=== PATIENT | female | born 1970 | race Caucasian/White ===

== ENCOUNTER 2021-07-14 12:52 | Outpatient (REF) | payer OTHER, SELFPAY ==
[2021-07-14 15:09] LABS: COVID-19 Test Negative (Negative); IDNOW Serial# 16C4AD1C
== END 2021-07-14 12:53 | disposition home or self-care (01) ==
LOC: HO.LAB 12:52
PROVIDERS: Visit Provider Internal Medicine
DX: Z20.822 Contact with and (suspected) exposure to COVID-19 (principal)
CPT/HCPCS: 36415; 87635; C9803

== ENCOUNTER 2023-03-01 10:16 | Outpatient (REF) | payer OTHER, SELFPAY | END 2023-03-01 10:17 | disposition home or self-care (01) | LOC: HO.HOSX 10:16 | PROVIDERS: Visit Provider Orthopaedic Surgery | DX: Z13.89 Encounter for screening for other disorder (principal) ==

== ENCOUNTER 2023-03-07 05:11 | Outpatient (REF) | payer OTHER, SELFPAY ==
--- NOTE | ~2023-03-07 | XR_ITS ---
EXAMINATION: XR KNEE, LEFT CLINICAL INFORMATION: Pain. COMPARISON: Radiographs dated 01/30/2018. TECHNIQUE: AP, lateral and sunrise views of the left knee. FINDINGS: Prosthetic components of the total knee arthroplasty are appropriately aligned without periprosthetic fracture or abnormal lucency. No component migration. There is a small joint effusion. XR/XR knee LT 3V IMPRESSION: 1. Appropriate alignment of the left total knee arthroplasty without evidence of complications. 2. There is a small left knee joint effusion.
== END 2023-03-07 05:12 | disposition home or self-care (01) ==
LOC: HO.HOSX 05:11
PROVIDERS: Visit Provider Orthopaedic Surgery
DX: M25.562 Pain in left knee (principal); Z79.899 Other long term (current) drug therapy
CPT/HCPCS: 73562

== ENCOUNTER 2023-03-07 08:06 | Outpatient (AMB) | payer OTHER, SELFPAY ==
--- NOTE | 2023-03-07 08:28 | A.OFFVIS_ITS ---
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 Suarez for an evaluation of left knee. Xrays obtained in office. Patient reports left TKA was done around 12/2021. Currently mild pain and discomfort. She denies any fevers or chills. She continues with her home stretching program. 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 Physical Exam Vital Signs: BMI result Body Mass Index 26.1 Const Other: Well-nourished well-developed very friendly female awake alert and oriented x3 in no acute distress Extrem Other: Bilateral lower extremity examination shows good capillary refill, no skin lesions noted, normal sensation light touch Left knee examination shows that the surgical incision is well healed, no erythema, range of motion from -5 degrees to 110 degrees, her patella tracks well, no instability Results Reviewed Results Reviewed: X-rays of the patient's left knee show a total knee arthroplasty in good position with no signs of loosening, no acute bony abnormalities Assessment & Plan Assessment & Plan (1) Left knee pain: Code(s): M25.562 - Pain in left knee Plan Ms. Renee continues to do fairly well after undergoing left total knee replacement surgery in December of 2021. She does know to take antibiotics before any dental work. She will continue with her stretching program. She will contact me prior to her follow-up appointment in 3 months should any questions or concerns arise. Feel free to call me at any time should questions regarding her orthopedic management arise. Orders: Orders XR knee LT 3V Today M25.562 - Pain in left knee Medications: New tramadol 50 mg PO Q8H PRN 40 tabs 0RF pain Coding Level of Care Code Global (51293) Diagnoses Left knee pain M25.562 Comment HNE not accepted yet
[2023-03-07 08:30] VITALS: BMI 26.1
== END 2023-03-07 08:54 | disposition home or self-care (01) ==
PROVIDERS: PCP Internal Medicine; Visit Provider Orthopaedic Surgery
DX: M25.562 Pain in left knee (principal)
CPT/HCPCS: 99213

== ENCOUNTER 2023-07-10 08:24 | Outpatient (AMB) | payer OTHER, SELFPAY ==
--- NOTE | 2023-07-10 08:27 | MHC.OFFVIS ---
Intake Vital Signs 07/10/23 08:28 07/10/23 08:29 Height 5 ft 4 in 54 ft Weight 154 lb 154 lb BMI 26.4 0.3 Intake Visit Reasons: Ov-Left Knee pain Intake Note: Yun is a 53 year old female who presents today for a follow up of her left knee pain. left total knee replacement surgery in December of 2021. Patient's continues to ride her stationary bike for exercise. She denies any fevers or chills. She does take tramadol as needed which gives her good relief. 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 Renee continues to do well after undergoing left total knee replacement surgery. She will continue with her home exercise program to prevent stiffness. She does know to take antibiotics before any dental work. She will contact me prior to her annual follow-up appointment should any questions or concerns arise. Feel free to call me at any time should questions regarding her orthopedic management arise. I spent 20 minutes in reviewing the patient's records and imaging studies, seeing the patient and documenting in the medical record. Medications: Refilled tramadol 50 mg PO Q8H PRN 40 tabs 0RF pain Coding Level of Care Code Est Pt Level 2 (78007) Diagnoses Left knee pain M25.562
[2023-07-10 08:28] VITALS: BMI 26.4
== END 2023-07-10 08:53 | disposition home or self-care (01) ==
PROVIDERS: PCP Internal Medicine; Visit Provider Orthopaedic Surgery
DX: M25.562 Pain in left knee (principal); Z96.652 Presence of left artificial knee joint
CPT/HCPCS: 99213

== ENCOUNTER → 2023-07-10 08:24 | Outpatient (BNVA) | payer OTHER, SELFPAY | PROVIDERS: PCP Internal Medicine; Visit Provider Orthopaedic Surgery ==

== ENCOUNTER 2023-08-23 09:33 | Outpatient (AMB) | payer OTHER, SELFPAY ==
[2023-08-23 09:34] VITALS: BMI 26.4
--- NOTE | 2023-08-23 09:34 | MHC.OFFVIS ---
Intake Vital Signs 08/23/23 09:34 Height 5 ft 4 in Weight 154 lb BMI 26.4 Intake Visit Reasons: OV-left knee pain follow up Intake Note: Yun is a 53 year old female who present for a follow up for Left knee pain. Patient reports that she is still in pain and the tramadol is not working. She says her pain is worse when she is walking and using the stairs. She denies any fevers or chills. She did undergo left total knee replacement surgery in December of 2021. She continues to stretch her knee as much as possible. She is due to go to [place] on vacation over the next few weeks. 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 Physical Exam Vital Signs: BMI result Body Mass Index 26.4 Const Other: Well-nourished well-developed very friendly female awake alert and oriented x3 in no acute distress Extrem Other: Bilateral lower extremity examination shows good capillary refill, no skin lesions noted, normal sensation light touch Left knee examination shows that the surgical incision is well healed, no erythema, range of motion from -3 degrees to 100 degrees, her patella tracks well Results Reviewed Results Reviewed: X-rays of the patient's left knee taken previously show a total knee arthroplasty in good position with no signs of loosening, no acute bony abnormalities Assessment & Plan Assessment & Plan (1) Painful total knee replacement, left: Code(s): T84.84XA - Pain due to internal orthopedic prosthetic devices, implants and grafts, initial encounter; Z96.652 - Presence of left artificial knee joint Plan Ms. Renee presents with continued discomfort in her left knee after undergoing left total knee replacement surgery in December of 2021. The patient's discomfort is most likely due to retained scar tissue and stiffness. The patient wishes to avoid further surgery if possible. I will arrange for the patient to have a evaluation by Dr. Dockery from the pain management clinic here at [facility] to see if she is a candidate for some type of nerve block procedure which might give her some relief. The patient will follow-up as instructed. She does know to take antibiotics before any dental work. I did give her a prescription for Percocet to help with her pain while she is on vacation at [place]. She will contact me prior to her follow-up appointment in 6 months should any questions or concerns arise. Feel free to call me at any time should questions regarding her orthopedic management arise. I spent 22 minutes in reviewing the patient's records and imaging studies, seeing the patient and documenting in the medical record. Orders: Referrals Pain Management Referral T84.84XA - Pain due to internal orthopedic prosthetic devices, implants and grafts, initial encounter, Z96.652 - Presence of left artificial knee joint Medications: New oxycodone-acetaminophen 5-325 mg (Percocet) Partial Fill upon patient request. The patient is instructed to take the Percocet in place of the tramadol. She was told not to take both at the same time. 1 tab PO Q12H PRN 20 tabs 0RF pain Coding Level of Care Code Est Pt Level 2 (90997) Diagnoses Painful total knee replacement, left T84.84XA; Z96.652
== END 2023-08-23 09:57 | disposition home or self-care (01) ==
PROVIDERS: PCP Internal Medicine; Visit Provider Orthopaedic Surgery
DX: M25.562 Pain in left knee (principal); T84.84XA Pain due to internal orthopedic prosthetic devices, implants and grafts, initial encounter; Z96.652 Presence of left artificial knee joint
CPT/HCPCS: 99213

== ENCOUNTER → 2023-08-23 09:33 | Outpatient (BNVA) | payer OTHER, SELFPAY | PROVIDERS: PCP Internal Medicine; Visit Provider Orthopaedic Surgery ==

== ENCOUNTER 2024-01-02 08:08 | Outpatient (AMB) | payer OTHER, SELFPAY ==
--- NOTE | 2024-01-02 08:11 | MHC.OFFVIS ---
Vital Signs 01/02/24 08:13 Height 5 ft 4 in Weight 149 lb BMI 25.6 BP 144/102 H Blood Pressure Location Lt brachial Position Sitting Respiration 14 Pulse 93 Pulse Source Pulse Oximeter Pulse Oximetry (%) 97 Oxygen Delivery Method Room Air Intake Visit Reasons: Pain D/T Internal Ortho Prosthetic Devices Intake Note: BP taken manually, Pt not on any BP meds. Pt states her had a recent DC, they are moving and had a in the family, so she is stressed. She states she is able to monitor her BP at home. I encouraged her to do this, and notify her PCP if BP remains elevated Allergies No Known Allergies Allergy (Verified 01/02/24 08:16) Medication List - Last Reconciled 01/02/24 by Latricia Melgar LPN clonazepam 1 mg PO BEDTIME PRN oxycodone-acetaminophen 5-325 mg (Percocet) 1 tab PO Q12H PRN tramadol 50 mg PO Q8H PRN HPI HPI Pain D/T Internal Ortho Prosthetic Devices: Details: 53-year-old female who presents to the office for evaluation of pain d/t internal ortho prosthetic devices. She states she had a left total knee replacement surgery two years ago. She now has pain, aching, nagging, stabbing pain, heaviness, and a and a feeling? that gets worse by the end of the day around her left knee. Knee pain is described as having an intensity of 8 to 9 out of 10 at the end of the day; it starts at 1 to 2 out of 10 at the beginning of the day. She continues to work full-time. She has difficulty sleeping because of this pain, but she is able to do her daily activities and care for herself. She has been managing her pain with Tramadol, which is not helpful anymore. She was engaged in outpatient physical therapy for a while but had to stop it to be able to take care of family members. She feels she would like to continue with physical therapy as it is providing some benefit. She denies any fever or chills. She continues to stretch her knees as much as possible. She thinks the pain and discomfort are most likely due to retained scar tissue and stiffness. She wishes to avoid any further surgery if possible. She is interested in trying a nerve block procedure, which might give her some relief. 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 Alert and oriented. Mood and affect appropriate. Follows and participates in conversation appropriately. Respiratory effort is unlabored. Able to transition from sit to stand unassisted. There is a well-healed midline scar overlying the left knee. There is tenderness to palpation in the medial and lateral aspects of the patella and is worse with weight bearing. Results Reviewed Results Reviewed: 03/02/23: XR KNEE, LEFT FINDINGS: Prosthetic components of the total knee arthroplasty are appropriately aligned without periprosthetic fracture or abnormal lucency. No component migration. There is a small joint effusion. IMPRESSION: 1. Appropriate alignment of the left total knee arthroplasty without evidence of complications. 2. There is a small left knee joint effusion. Assessment & Plan Assessment & Plan (1) Left knee pain: Code(s): M25.562 - Pain in left knee Category: Medical (2) Painful total knee replacement, left: Code(s): T84.84XA - Pain due to internal orthopedic prosthetic devices, implants and grafts, initial encounter; Z96.652 - Presence of left artificial knee joint Category: Medical Plan She will return to to physical therapy for the summer as well as swimming and aquatic exercises. If these are not helpful for pain or worsen her symptoms, she will return to us in the fall for a trial of temporary nerve stimulation therapy of the left saphenous nerve for post arthroplasty intractable knee pain. Scribed for Dr. Dockery by Rosa Maria Haile, medical administrative assistant, on 01/02/2024. I, Dr. Dockery, have personally reviewed and agree with the information entered by the scribe. Orders: Orders PT Evaluation and Treatment 01/02/24 M25.562 - Pain in left knee, T84.84XA - Pain due to internal orthopedic prosthetic devices, implants and grafts, initial encounter, Z96.652 - Presence of left artificial knee joint Coding Level of Care Code Est Pt Level 3 (02387) Diagnoses Left knee pain M25.562 Painful total knee replacement, left T84.84XA; Z96.652
[2024-01-02 08:13] VITALS: BP 144/102; PULSE 93; RESP 14; O2SAT 97; BMI 25.6
== END 2024-01-02 08:55 | disposition home or self-care (01) ==
PROVIDERS: PCP Internal Medicine; Visit Provider Internal Medicine
DX: M25.562 Pain in left knee (principal); T84.84XA Pain due to internal orthopedic prosthetic devices, implants and grafts, initial encounter; Z96.652 Presence of left artificial knee joint
CPT/HCPCS: 99213

== ENCOUNTER → 2024-01-02 08:08 | Outpatient (BNVA) | payer OTHER, SELFPAY | PROVIDERS: PCP Internal Medicine; Visit Provider Internal Medicine ==

== ENCOUNTER 2024-02-19 09:22 | Outpatient (AMB) | payer OTHER, SELFPAY ==
--- NOTE | 2024-02-19 09:59 | A.OFFVIS_ITS ---
Intake Visit Reasons: OV-left knee pain follow up Intake Note: Yun is a 53 year old female who presents to the office today for a left knee pain follow up. Patient saw pain management on 01/02/24, states having a little improvement since that visit. She continues to do at home exercises. She has also done formal physical therapy as well as aquatic therapy. She denies any fevers or chills. She does take tramadol as needed for discomfort. 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 Renee continues to do fairly well after undergoing left total knee repla cement surgery. She does have residual discomfort most likely due to scar tissue formation. At this point the patient's symptoms are improving with aquatic therapy and physical therapy exercises. She does know to take antibiotics before any dental work. She will contact me prior to her follow-up appointment in 3 months should any questions or concerns arise. Feel free to call me at any time should questions regarding her orthopedic management arise. I spent 21 minutes in reviewing the patient's records and imaging studies, seeing the patient and documenting in the medical record. Medications: Refilled tramadol 50 mg PO Q8H PRN 40 tabs 0RF pain Coding Level of Care Code Est Pt Level 3 (43552) Diagnoses Left knee pain M25.562
== END 2024-02-19 10:27 | disposition home or self-care (01) ==
PROVIDERS: PCP Internal Medicine; Visit Provider Orthopaedic Surgery
DX: M25.562 Pain in left knee (principal)
CPT/HCPCS: 99213

== ENCOUNTER → 2024-02-19 09:22 | Outpatient (BNVA) | payer OTHER, SELFPAY | PROVIDERS: PCP Internal Medicine; Visit Provider Orthopaedic Surgery ==

== ENCOUNTER 2025-06-29 10:53 | Outpatient (AMB) | payer OTHER, SELFPAY ==
--- NOTE | 2025-06-29 11:23 | A.OFFVIS_ITS ---
Intake Visit Reasons: follow up Allergies No Known Allergies Allergy (Verified 06/29/25 11:28) Medication List - Last Reconciled 06/29/25 by Renay Mccoy CNP amitriptyline 50 mg PO BEDTIME clonazepam (Klonopin) 1 mg PO BEDTIME 30 days oxycodone-acetaminophen 5-325 mg (Percocet) 1 tab PO Q6H PRN 30 days tramadol 50 mg PO Q12H PRN HPI Comments Details: She slipped and fell on ice on 06/16/2025 while at work, and hurt left knee, has L TKR. Had XRs, and has appointment with orthopedics on 07/08/2025. L knee painful and swollen. She was offered pain medication, but declined as she is getting oxycodone-acetaminophen from this office. Headaches have been okay, about the same. 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 Sleep had been okay, but not so good the last few weeks related to knee pain. Headaches were happening few times a week. She was working in [employer] for over 30 years. Her was doing okay after having his third heart attack at the end of 06/2024. Working with therapist. Her grandson passed at 13 months in 10/2022 from aspiration. He had undergone open heart surgery at [facility]. He had been in the hospital since . Her had PA and needed two stents in 12/2023, also had PA in 03/2021 and treated with tPA. She was diagnosed as Lyme disease on 02/27/2021 and treated with doxycycline for 3 weeks. Symptoms were a swollen ankle and pain in back of neck and joints hurting. Loss of appetite and fatigue. She has history of IBS and resection of carcinoid tumor in 2000, acts up off and on. 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 Review of Systems Const Denies chills, Denies daytime sleepiness, Reports difficulty sleeping, Denies fatigue, Denies fever(s), Denies frequent falls, Reports headache(s), Denies increased appetite, Denies poor appetite, Denies snoring, Denies weakness, Denies weight gain and Denies weight loss Eyes Denies loss of vision ENT Denies vertigo, Denies dizziness, Reports headache(s) and Denies neck pain Card Denies chest pain at rest, Denies chest pain with activity, Denies syncope, Denies leg edema, Denies palpitations, Denies dyspnea and Denies dyspnea on exertion Resp Denies cough, Denies dyspnea, Denies dyspnea on exertion and Denies snoring GI Denies abdominal pain, Denies constipation, Denies heartburn, Denies diarrhea and Denies nausea Denies urinary frequency, Denies urinary incontinence and Denies urinary urgency Musc Denies abnormal gait, Denies back pain, Denies myalgias, Denies arthralgias, Denies neck pain, Denies numbness and Denies tingling Neuro Denies abnormal gait, Denies vertigo, Denies dizziness, Denies syncope, Denies frequent falls, Reports headache(s), Denies lack of coordination, Denies loss of vision, Denies memory loss, Denies numbness, Denies Other visual disturbances, Denies restless legs, Denies seizure-like activity, Denies tingling, Denies paresthesias, Denies tremor(s) and Denies weakness Psych Reports anxiety, Denies depression, Denies auditory hallucinations, Denies memory loss and Denies visual hallucinations Endo Denies fatigue and Denies palpitations Physical Exam Const Other: General Appearance:? normal, in no acute distress. Heart:? S1, S2 normal, no murmurs. Lungs:? clear anteriorly and posteriorly. Musculoskeletal:? normal. Extremities:? no edema. Psych:? alert, oriented, cognitive function intact, cooperative with exam. Neuro Other: Abnormal Neurological Findings:?none.? Mental Status: alert and oriented X 3. Normal attention, orientation, memory, and affect. Cranial Nerves: Pupils are equal, round, and reactive to light. External ocular muscles are intact. Visual negron are full, no ptosis. Face is symmetrical, no facial weakness or droop. Facial sensations are normal. Tongue protrudes in midline. Palate elevates symmetrically. Shoulder shrugging is normal Motor Examination: Normal muscle tone, bulk and strength. No atrophy or fasciculations. No drift of the extended upper extremities. DTR 2+. Plantars are flexor. Sensory Exam: Normal light touch, temperature, pinprick, vibration, and joint- position sensations. Rhomberg sign is absent. Coordination: No ataxia. No titubation. Gait Exam: Within normal limits. Cerebellar Signs: [id number] is okay. Extrapyramidal System: No tremor, rigidity with normal facial expressions. No bradykinesia. No bradyphrenia. Normal arm swing and posture. No propulsion or retropulsion. Speech: Normal. Assessment & Plan Assessment & Plan (1) Migraine: Code(s): G43.909 - Migraine, unspecified, not intractable, without status migrainosus Category: Medical Qualifiers: Intractability: not intractable Migraine type: unspecified Status migrainosus presence: without status migrainosus Qualified Code(s): G43.909 - Migraine, unspecified, not intractable, without status migrainosus Plan: Continue amitriptyline 50mg 1 tablet at bedtime. Continue oxycodone-acetaminophen 5-325mg 1 tablet as needed q6h for migraine #30 for 30 days, temporary increase to #40 for 30 days for L knee pain - has appoint ment with orthopedics scheduled later this month. Follow up in 6 months or sooner as needed. (2) Anxiety: Code(s): F41.9 - Anxiety disorder, unspecified Category: Medical Plan: Continue clonazepam 1mg 1 tablet at bedtime #30 for 30 days. Medications: New amitriptyline 50 mg PO BEDTIME 90 tabs 1RF 90 days Changed From oxycodone-acetaminophen 5-325 mg (Percocet) Partial Fill upon patient request. 1 tab PO Q6H 30 days PRN 30 tabs 0RF pain To oxycodone-acetaminophen 5-325 mg (Percocet) Temporary increase 1 tab PO Q6H PRN 30 tabs 0RF pain 40 days Discontinued tramadol Discontinued Reason: Patient no longer taking 50 mg PO Q12H PRN 60 tabs 0RF pain Coding Level of Care Code Est Pt Level 4 (09765) Diagnoses Migraine without status migrainosus, not intractable, unspecified migraine type G43.909 Intractability: not intractable Migraine type: unspecified Status migrainosus presence: without status migrainosus Anxiety F41.9
== END 2025-06-29 11:39 | disposition home or self-care (01) ==
LOC: HO.HSM 10:53
PROVIDERS: PCP Internal Medicine; Visit Provider Registered Nurse
DX: G43.909 Migraine, unspecified, not intractable, without status migrainosus (principal); F41.9 Anxiety disorder, unspecified
CPT/HCPCS: 99214

== ENCOUNTER 2025-07-08 08:41 | Outpatient (AMB) | payer OTHER, SELFPAY ==
--- OUTSIDE RECORDS SUMMARY | 2022-12-16 09:59 | XMS_ITS | Encounter Summary ---
Author Organization [facility] Address [address] [place] [address] [place], [place] [id number] Phone Care Team Providers Care Shipping Receiving Clerk Name Role Phone Phani Rascon Primary Care Provide r Encounter Details Date Type Department Care Team (Late st Contact Info) Description 12/16/2022 10:59 AM EDT Hospital Encounter [facility] [address] [place] [id number] Cecily Sheppard CNP [address] [place] [phone] [email or web address] Social History Tobacco Use Types Packs/Day Years Used Date Smoking Tobacco: Never Smokeless Tobacco: Never Education Answer Date Recorded Are you interested in more education? Not on jose e 11/10/2022 Are you concerned about learning? Not on file 11/10/2022 No 11/10/2022 No 11/10/2022 Digital Access Answer Date Recorded No 12/09/2022 No 12/09/2022 No 12/09/2022 Reliable internet access at home? Not on file 12/09/2022 Device with a working camera? Not on file Comments Unknown Sex and Gender Information Value Date Recorded Sex Assigned at Not on file Legal Sex Female 9:37 PM EDT Gender Identity Not on file Sexual Orientation Not on file documented as of this encounter Plan of Treatment Not on file documented as of this encounter Procedures Procedure Name Priority Date/Time Associated Diagnosis Comments XR CHEST PA AND LATERAL 2 VIEWS Urgent/patient waiting 12/16/2022 11:04 AM EDT Cough documented in this encounter Results * XR CHEST PA AND LATERAL 2 VIEWS (12/16/2022 11:04 AM EDT) Anatomical Region Laterality Modality Chest Computed Radiogr aphy 12/16/2022 11:1 6 AM EDT Impressions 12/16/2022 11:16 AM EDT Normal chest. Narrative 12/16/2022 11:16 AM EDT XR CHEST PA AND LATERAL 2 VIEWS COMPARISON: None. FINDINGS: Devices/Tubes/Lines: None. Lungs: Normal. The lungs are clear. No focal consolidation or pulmonary edema. Pleura: Normal. No pleural effusion or pneumothorax. Heart/Mediastinum: Normal heart and mediastinum. Bones/Soft Tissues: Normal. No significant skeletal abnormality. Procedure Note Carley Herzog MD - 12/16/2022 XR CHEST PA AND LATERAL 2 VIEWS COMPARISON: None. FINDINGS: Devices/Tubes/Lines: None. Lungs: Normal. The lungs are clear. No focal consolidation or pulmonaryedema. Pleura: Normal. No pleural effusion or pneumothorax. Heart/Mediastinum: Normal heart and mediastinum. Bones/Soft Tissues: Normal. No significant skeletal abnormality. IMPRESSION: Normal chest. us Cecily Sheppard AUTOMATIC BUFFER IMG XR CHEST Final Resul t documented in this encounter Visit Diagnoses Not on filedocumented in this encounter Care Teams Shipping Receiving Clerk Relationship Specialty Start Date End Date Phani Rascon PA [address] [facility] [address] [place] [address] PCP - General Physician Yard Crane Operator 12/16/22 documented as of this encounter Additional Source Comments The information contained in this document represents components of the legal health record. It is not the complete legal health record.[facility]
--- OUTSIDE RECORDS SUMMARY | 2025-07-08 08:43 | XMS_ITS | Clinical Summary ---
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 Active morphine IR (MSIR) 15 mg Tablet Take 1 tablet by mouth every 6 hours as needed for Pain. 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 Overview (02/27/2021): 4 cm; partial colectomy 2000; octreatide for few years; CN Q6M; now CN YEARLY Chronic diarrhea 02/27/2021 Elevated LFTs 02/27/2021 Hyperlipidemia 02/27/2021 GERD (gastroesophageal reflux disease) 0 IBS (irritable bowel syndrome) 09/01/2019 Family history of breast cancer 03/04/2019 Fatty liver 01/02/2019 Social History Tobacco Use Types Packs/Day Years Used Date Smoking Tobacco: Never Assessed Comments Unknown Sex and Gender Information Value Date Recorded Sex Assigned at Not on file Legal Sex Female 7:48 AM EDT Gender Identity Not on file Sexual Orientation Not on file Last Filed Vital Signs Vital Sign Reading Time Taken Comments Blood Pressure 155/94 02/27/2021 3:42 PM EDT Pulse 104 02/27/2021 7:59 AM EDT Temperature 36.6 C (97.8 F) 02/27/2021 3:42 PM EDT Respiratory Rate 16 02/27/2021 3:42 PM EDT Oxygen Saturation 94% 02/27/2021 3:42 PM EDT Inhaled Oxygen Concentration - - Weight 73 kg (161 lb) 02/27/2021 7:59 AM EDT Height 162.6 cm (5' 4 ) 02/27/2021 7:59 AM EDT Body Mass Index 27.64 02/27/2021 7:59 AM EDT Plan of Treatment Health Maintenance Due Date Last Done Comments CT Colonography 1968 Colonoscopy 1968 Colorectal Cancer Screening 1968 FIT DNA 1968 FIT 1968 Sigmoidoscopy (10 year) with FIT yearly 1968 Sigmoidoscopy 1968 HIV screen 1986 Hepatitis C Screening 1986 Hepatitis B vaccine (0-59 yrs) and Risk (1) 1987 Tetanus/Diphtheria/Pertussis Vaccines (1 - Tdap) 03/09 HPV test 1998 PAP Smear 1998 Breast Cancer Share Decision Needed 2008 Breast Cancer screening 2008 Pneumoccocal Vaccine: 50+ (1 of 1 - PCV) 2018 Zoster vaccine (1 of 2) 2018 Advance Directive 2023 Covid-19 Vaccine (2 - 2024- season) 2025 Influenza (Flu) vaccine (1 o f 1 - Influenza standard series) 03/16/2025 Diabetes Screening (HgbA1C or Glucose) Discontinued Procedures Procedure Name Priority Date/Time Associated Diagnosis Comments BASIC METABOLIC PANEL STAT 02/27/2021 8:10 AM EDT from Last 3 Months or Most Recently Relevant to Health Maintenance Results * (ABNORMAL) Basic Metabolic Panel (non-fasting) (02/27/2021 8:10 AM EDT) Glucose 103 65 - 199 mg/dL [facility] Comment:Diabetes: >=200 mg/d L plus symptoms Blood Urea Nitrogen 19(H) 8 - 18 mg/dL [facility] Creatinine 0.69(L) 0.70 - 1.20 mg/dL [facility] Sodium 139 135 - 145 mmol/L [facility] Potassium 3.7 3.5 - 5.0 mmol/L [facility] Comment: Please note: Patients with WBC >100,000 may have falsely elevated Potassium levels. For accurate Potassium quantification in these patients send serum separator tube (gold top) for subsequent determinations. Contact the Clinical Chemistry Laboratory if there are any questions. Chloride 101 98 - 107 mmol/L [facility] Carbon Dioxide 25 22 - 31 mmol/L [facility] Anion Gap 13 5 - 15 mmol/L [facility] Calcium 9.6 8.5 - 10.5 mg/dL [facility] Est Glomerular Filtration Rate 100 >=60 mL/min/1. 73 m [facility] Comment: This patient s estimated glomerular filtration rate (eGFR) is between 100 mL/min/1.73 m2 (patients with less muscle mass per kg body weight) and 116 mL/min/1.73 m2 (patients with more muscle mass per kg body weight) as determined by the CKD-EPI equation. Assessment of eGFR is not appropriate when creatinine concentrations are rapidly changing. For clinical decisions where creatinine clearance will affect therapy, a 24-hour urine creatinine clearance may be advised. Assignment of CKD stage 1 - 5 for patients with an eGFR near the transition point between stages may be based on clinical assessment of muscle mass and symptoms in addition to eGFR. Blood 02/27/2021 8:10 AM EDT 02/27/2021 8:19 AM EDT Narrative Resulting Agency Comment Spec In Lab us Margarito Whitney DO CHEMISTRY ORDERABLES Final Resu lt [facility] [address] [place] [address] from Last 3 Months or Most Recently Relevant to Health Maintenance Insurance [id number] (Home) [address] [place] [id number] [place] [address] Care Teams Saddle And Side Wire Stitcher Relationship Specialty Start Date End Date Kevin Laura MD [address] [place] [address] [address] [place] [address] PCP - General Internal Medicine 02/27/21
--- OUTSIDE RECORDS SUMMARY | 2025-07-08 08:43 | XMS_ITS | Clinical Summary ---
Author Organization [facility] Address [address] [place] [address] Care Team Providers Care Correctional Officer Chief Name Role Phone Kevin Laura MD Primary Care Provider [phone] Allergies No known active allergies Medications pantoprazole (PROTONIX) 40 mg EC tablet Take 1 Tablet by mouth daily. 07/25/2022 Active acetaminophen (TYLENOL) 500 mg tablet Take 1 Tablet by mouth every 6 hours as needed for Pain or Fever. 07/25/2022 Active apixaban (Eliquis) 5 mg tablet Take 1 Tablet by mouth 2 times daily. 01/17/2022 Active clonazePAM (KlonoPIN) 1 mg tablet TK 1 T PO QHS 09/16/2019 Active CLONAZEPAM ORAL Take by mouth. Active APPLE CIDER VINEGAR ORAL Take by mouth. Active psyllium seed, with sugar, (FIBER ORAL) Take by mouth. Active mv-min/iron/folic /calcium/vitK (WOMEN'S MULTIVITAMIN ORAL) Take by mouth. Active cyanocobalamin, vitamin B-12, (VITAMIN B-12 ORAL) Take by mouth. 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 Grove GERD (gastroesophageal reflux disease) 0 IBS (irritable bowel syndrome) 09/01/2019 Fatty liver 01/02/2019 Immunizations Immunization Administration Dates Next Due Hepatitis B (Sgkcwse-U-Obvew , Recombivax HB-Adult) 19yo and older 07/30/2019,02/27/2019,01/23/2019 Influenza Quadravalent, MDCK , 0.5ml, preservative free (Flucelvax) 6mo and older 03/26/2019 Influenza trivalent, 0.5mL, preservative free (Fluarix; FluLaval; Fluzone) ages 6mo and older (Afluria) 3 years and older 05/09/2020 [employer] [place] SARS-CoV-2 COVID -19, vector-nr, rS-Ad26, preservative free 09/29/2020 Tdap Tetanus diptheria acell ular pertussis (Boostrix; Adacel) 7yo and older 03/26/2019 Surgical History Surgery Date Site/Laterality Comments OTHER SURGICAL HISTORY 2000 PROCEDURE: FL COLECTOMY PARTIAL W/ANASTOMOSIS; COMMENT: ileocolectomy 9including ileocecal valve,1 foot removed KNEE ARTHROSCOPY PROCEDURE: FL ARTHROSCOPY AID [place] SPINE&/FX KNEE W/O FIXJ; COMMENT: x3 (2011, 1991,1985); [facility] HYSTERECTOMY 1999 PROCEDURE: HISTORICAL HYSTERECTOMY; COMMENT: BARBARA w/ BSO for Endometriosis SINUS SURGERY 2009 PROCEDURE: FL UNLISTED PROCEDURE ACCESSORY SINUSES; COMMENT: benign mass removed CHOLECYSTECTOMY 2015 PROCEDURE: HISTORICAL CHOLECYSTECTOMY UPPER GASTROINTESTINAL ENDOSCOPY 01/10/2011 PROCEDURE: FL UPPER GI ENDOSCOPY PERFORMED; COMMENT: erosive esophagitis, earlt schatzki's ring, superficial gastritis UPPER GASTROINTESTINAL ENDOSCOPY 02/29/2012 PROCEDURE: FL UPPER GI ENDOSCOPY PERFORMED; COMMENT: distal esophagitis, sml hiatal hernia, superficial gastritis COLONOSCOPY 02/29/2012 PROCEDURE: HISTORICAL COLONOSCOPY; COMMENT: Normal COLONOSCOPY 02/23/2015 PROCEDURE: HISTORICAL COLONOSCOPY; COMMENT: Normal UPPER GASTROINTESTINAL ENDOSCOPY 02/23/2015 PROCEDURE: FL UPPER GI ENDOSCOPY PERFORMED; COMMENT: distal esophagitis, hiatal hernia, superficial gastritis COLONOSCOPY 05/20/2010 PROCEDURE: HISTORICAL COLONOSCOPY; COMMENT: Negative - no report COLONOSCOPY 01/14/2019 PROCEDURE: HISTORICAL COLONOSCOPY; COMMENT: Normal, Repeat 5 yrs for screening purposes BREAST LUMPECTOMY 09/25/2019 Left PROCEDURE: HISTORICAL BREAST LUMPECTOMY; COMMENT: excision left breast mass BREAST BIOPSY 10/29/2019 Left PROCEDURE: BX BREAST; PERC NEEDLE CORE W/IMAG GUID; COMMENT: hematoma drained HYSTERECTOMY PROCEDURE:HYSTERECTOMY KNEE SURGERY Left PROCEDURE:KNEE SURGERY;COMMENT:x 3 l knee BREAST SURGERY 09/2019 PROCEDURE:BREAST SURGERY;COMMENT:benign COLON SURGERY 2000 PROCEDURE:COLON SURGERY;COMMENT:partial Colectomy for CA CHOLECYSTECTOMY 2015 PROCEDURE:CHOLECYSTECTOMY COLONOSCOPY PROCEDURE:COLONOSCOPY UPPER GASTROINTESTINAL ENDOSCOPY PROCEDURE:UPPER GASTROINTESTINAL ENDOSCOPY TOTAL KNEE ARTHROPLASTY 12/15/2021 Left PROCEDURE:TOTAL KNEE ARTHROPLASTY;COMMENT:Procedur e: REPLACEMENT TOTAL KNEE; Surgeon: Keaton Suarez MD; Location: [facility] Service: Orthopedics; Laterality: Left; JOINT REPLACEMENT PROCEDURE:JOINT REPLACEMENT Medical History Medical History Date Comments Carcinoid tumor of colon ([facility] V28) DX:Carcinoid tumor of colon; COMMENT: 4 cm; partial colectomy 2000; octreatide for few years; CN Q6M; now CN YEARLY Chronic diarrhea DX:Chronic diar apryl Arthritis of left knee DX:Arthri tis of left knee Endometriosis DX:Endometriosis Elevated LFTs DX:Elevated LFTs History of malignant neoplas m of large intestine 2000 DX:History of malignant neop lasm of large intestine GERD (gastroesophageal reflux disease) 0 DX:GERD (gastroesophageal reflux disease) Hyperlipidemia DX:Hyperlipidemi a IBS (irritable bowel syndrome) 09/01/2019 D X:IBS (irritable bowel syndrome) History of COVID-19 07/16/2021 DX:History o f COVID-19 History of Lyme disease 02/2021 DX:Histo ry of Lyme disease Migraine DX:Migraine; COM MENT: f/u neuro Dr. Grove Lyme disease DX:Lyme disease Cancer ([facility] V24, [facility] V28) 2000 DX:Cancer ([facility]);COMMENT:carcinoid ca intestine Urinary tract infection 12/01/2021 DX:Urina ry tract infection Migraine headache DX:Migraine he adache Irritable bowel DX:Irritable bow el Anxiety DX:Anxiety;COMME NT:mild per pt Lyme disease DX:Lyme disease Covid-19 08/17/2021 DX:COVID-19;COMM ENT:pco note GERD (gastroesophageal reflux disease) DX:GERD (gastroesophageal reflux disease) Chronic diarrhea DX:Chronic diar apryl Hyperlipidemia DX:Hyperlipidemi a Fatty liver DX:Fatty liver;C OMMENT:pcp note Elevated LFTs DX:Elevated LFTs ;COMMENT:pcp note Family History Medical History Relation Name Comments Hypertension Brother 1 Diabetes Brother 2 Heart attack Father Late 50s, CVA, Crohn's disease, Hypertension, Hyperlipidemia Other: Gastric Cancer Maternal Grandmother Stomach cancer Mother's side x5 second co usins Prostate cancer Paternal Grandfather Breast cancer Paternal Grandmother 70s Breast cancer Sister 1 50's, Thyroid Disorder Thyroid disease Sister 2 Colon cancer Neg Hx Ovarian cancer Neg Hx Prostate cancer Neg Hx Relation Name Status Comments Brother 1 Brother 2 Father Alive Maternal Grandmother Mother 60s Mother's side Paternal Grandfather Paternal Grandmother 70s Sister 1 Sister 2 Social History Tobacco Use Types Packs/Day Years Used Date Smoking Tobacco: Never Smokeless Tobacco: Never Alcohol Use Standard Drinks/Week Comments Never 0 (1 standard drink = 0.6 oz pur e alcohol) Comments Unknown Sex and Gender Information Value Date Recorded Sex Assigned at Not on file Legal Sex Female 8:46 PM EDT Gender Identity Not on file Sexual Orientation Not on file Last Filed Vital Signs Vital Sign Reading Time Taken Comments Blood Pressure 121/82 06/28/2022 4:14 PM EST Pulse 82 06/28/2022 4:14 PM EST Temperature - - Respiratory Rate - - Oxygen Saturation - - Inhaled Oxygen Concentration - - Weight 70.8 kg (156 lb) 06/28/2022 4:14 PM EST Height 162.6 cm (5' 4 ) 06/28/2022 4:14 PM EST Body Mass Index 26.78 06/28/2022 4:14 PM EST Plan of Treatment Health Maintenance Due Date Last Done Comments Drug Screen 1968 Non-Opioid Controlled Substance Agreement 1968 Zoster Vaccines (1 of 2) 1987 Cervical Cancer Screening: P ap Smear 1989 Pneumococcal Vaccine: 50+ Years (1 of 1 - PCV) 2018 COVID-19 Vaccine (2 - Jansse n risk series) 10/27/2020 09/29/2020 HIV Screening 11/29/2021 Social Influencers of Health Screening 11/29/2021 Breast Cancer Screening 12/20/2022 12/21/19 21, 12/31/2018 Cholesterol Screening (Lipid Panel) 12/06/2023 12/05/2018 Colorectal Cancer Screening: Colonoscopy 01/15/2024 01/14/2019 Depression Screening 07/16/2024 Influenza Vaccine (#1) 2025 , 03/26/2019 DTaP,Tdap,and Td Vaccines (2 - Td or Tdap) 03/26/2029 03/26/2019 RSV Immunization Adult Patients (1 - 1-dose 75+ series) 2043 Hepatitis C Screening Completed 12/31/2018 Hepatitis B Vaccines Completed 07/30/2019, 02/27/2019, 01/23/2019 HIB Vaccines Aged Out No longer eligi ble based on patient's age to complete this topic HPV Vaccines Aged Out No longer eligi ble based on patient's age to complete this topic Hepatitis A Vaccines Aged Out No long er eligible based on patient's age to complete this topic IPV Vaccines Aged Out No longer eligi ble based on patient's age to complete this topic MMR Vaccines Aged Out No longer eligi ble based on patient's age to complete this topic Meningococcal ACWY Vaccine Aged Out N o longer eligible based on patient's age to complete this topic Meningococcal B Vaccine Aged Out No l onger eligible based on patient's age to complete this topic RSV Immunization Patients Under 20 months Aged Out No longer eligible b ased on patient's age to complete this topic Varicella Vaccines Aged Out No longer eligible based on patient's age to complete this topic Medical Devices Implanted Type Area Radiology Administrator Device Identifier Shelf Expiration Date Model / Serial / Lot Cement Bone Surg Simplex Radiopq Stry-Howm [id number] Implanted:Qty: 1 on 12/15/2021 by Keaton Suarez MD Left: Knee [employer] 02/13/2024 6191-1-010 / / [id number] Cement Bone Surg Simplex Radiopq Stry-Howm [id number] Implanted:Qty: 1 on 12/15/2021 by Keaton Suarez MD Left: Knee [employer] 02/13/2024 6191-1-010 / / [id number] Knee Tib Insrt Ps-X3 Sz 2 9mm Stry-Howm [id number] Implanted:Qty: 1 on 12/15/2021 by Keaton Suarez MD Left: Knee [employer] [id number] 04/27/2026 5532-G-209 / / [id number] Knee Tib Base Plt Trthln Sz 2 Stry-Howm 2400-[id number] Implanted:Qty: 1 on 12/15/2021 by Keaton Suarez MD Left: Knee [employer] [id number] 06/17/2026 5520-B-200 / / [id number] Femoral Cmpnt Lt Sz 2 Stry-Howm [id number] Implanted:Qty: 1 on 12/15/2021 by Keaton Suarez MD Left: Knee [employer] [id number] 06/20/2026 5515-F-201 / / [id number] Knee Pat Symmetric X3 29x8mm Stry-Howm [id number] Implanted:Qty: 1 on 12/15/2021 by Keaton Suarez MD Left: Knee [employer] [id number] 10/08/2025 5550-G-298 / / [id number] Peg Fix Femoral Distal Stry-Howm [id number] Implanted:Qty: 1 on 12/15/2021 by Keaton Suarez MD Left: Knee [employer] [id number] 04/12/2026 5575-X-000 / / [id number] Procedures Procedure Name Priority Date/Time Associated Diagnosis Comments SCREENING MAMMOGRAPHY BI 2-VIEW BREAST INC CAD Routine 12/20/2020 3:06 PM EDT Encounter for other screening for malignant neoplasm of breast Family history of malignant neoplasm of breast COLONOSCOPY Routine 01/14/2019 HEPATITIS C SCREENING Routine 12/31/2018 LIPID PANEL Routine 12/05/2018 from Last 3 Months or Most Recently Relevant to Health Maintenance Results * SCREENING MAMMOGRAPHY BI 2-VIEW BREAST INC CAD (12/20/2020 3:06 PM EDT) Anatomical Region Laterality Modality Radiographic Nasrin ging 12/31/2018 9:27 AM EDT Narrative 12/21/2020 10:34 AM EDT This is a summary report. The complete report is available in the patient's medical record. If you cannot access the medical record, please contact the sending organization for a detailed fax or copy. BILATERAL 2D and 3D DIGITAL SCREENING MAMMOGRAM History: Routine screening. No current breast complaints. Family history of breast cancer in grandmother, sister and mother Comparison: Multiple priors dating back to 12/31/2018 Technique: Bilateral full-field digital 2D and 3D mammography was performed using standard CC and MLO projections CAD was used to evaluate this mammogram. Findings: Density: There are scattered areas of fibroglandular density-B RIGHT: No suspicious masses, groups of microcalcification or areas of architectural distortion identified. Stable typically benign parenchymal asymmetries LEFT: No suspicious masses, groups of microcalcifications or areas of architectural distortion identified. Stable typically benign parenchymal asymmetries IMPRESSION: : 1. No mammographic evidence of malignancy. BI-RADS Category 2 benign findings Recommendation: Routine annual screening mammography is recommended Procedure Note Samantha Persaud MD - 07/04/2022 This is a summary report. The complete report is available in thepatient's medical record. If you cannot access the medical record, pleasecontact the sending organization for a detailed fax or copy. BILATERAL 2D and 3D DIGITAL SCREENING MAMMOGRAM History: Routine screening. No current breast complaints. Family historyof breast cancer in grandmother, sister and mother Comparison: Multiple priors dating back to 12/31/2018 Technique: Bilateral full-field digital 2D and 3D mammography wasperformed using standard CC and MLO projections CAD was used to evaluate this mammogram. Findings: Density: There are scattered areas of fibroglandular density-B RIGHT: No suspicious masses, groups of microcalcification or areas ofarchitectural distortion identified. Stable typically benign parenchymalasymmetries LEFT: No suspicious masses, groups of microcalcifications or areas ofarchitectural distortion identified. Stable typically benign parenchymalasymmetries IMPRESSION: : 1. No mammographic evidence of malignancy. BI-RADS Category 2 benign findings Recommendation: Routine annual screening mammography is recommended Indira HANNAH IMG XR PROCEDURES Final Result * Colonoscopy (01/14/2019) Colonoscopy no interpretation , abstracted Anatomical Region Laterality Modality Other [facility] Provider HEALTH MAINTENANCE Final Result * Hepatitis C Screening (12/31/2018) Hepatitis C Screening abstracted [facility] Provider [facility] Final Result * (ABNORMAL) Lipid panel (12/05/2018) Pathologist [facility] LDL/HDL Ratio 5(A) 0 - 4 Triglycerides 157(A) 0 - 150 mg/dL Cholesterol 239(A) 0 - 200 mg/dL HDL 50 >=40 mg/dL LDL Cholesterol 158(A) 0 - 100 mg/dL Blood Venous blood specimen / Unknown [facility] Provider LAB BLOOD ORDERABLES [place] l Result from Last 3 Months or Most Recently Relevant to Health Maintenance Insurance [facility] Care Teams Correctional Officer Chief Relationship Specialty Start Date End Date Kevin Laura MD [address] [place] [id number] PCP - General Internal Medicine 12/20/20
--- OUTSIDE RECORDS SUMMARY | 2025-07-08 08:43 | XMS_ITS | Clinical Summary ---
Author Organization [facility] Address [address] [place], [place] [id number] Phone Care Team Providers Care Academic Affairs Manager Name Role Phone Phani Rascon Primary Care Provide r Allergies No known active allergies Medications clonazePAM (KLONOPIN) 1 MG tablet Take 1 mg by mouth nightly at bedtime. at bedtime. 1 Active albuterol 90 mcg/actuation inhaler Inhale 2 puffs into the lungs every 6 (six) hours as needed for wheezing or shortness of breath/dyspnea. 8 g 3 Active Additional Information Patient not taking.Reported on 12/16/2022 ibuprofen (ADVIL,MOTRIN) 600 MG tablet Take 600 mg by mouth. 3 Active Active Problems Problem Noted Date Diagnosed Date Migraine 08/17/2021 12/16/2022 Overview (12/16/2022): f/u neuro Dr. 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 Overview (07/18/2021): 4 cm; partial colectomy 2000; octreatide for few years; CN Q6M; now CN YEARLY 4 cm; partial colectomy 2000; octreatide for few years; CN Q6M; now CN YEARLY Arthritis of left knee 02/27/2021 IBS (irritable bowel syndrome) 09/01/2019 GERD (gastroesophageal reflux disease) 0 Family history of breast cancer 03/04/2019 Fatty liver 01/02/2019 Immunizations No known immunizations Social History Tobacco Use Types Packs/Day Years [...] Sign Reading Time Taken Comments Blood Pressure 165/108 12/16/2022 11:13 AM EDT Pulse 94 12/16/2022 11:13 AM EDT Temperature 36.7 C (98.1 F) 12/16/2022 10:42 AM EDT Respiratory Rate 18 12/16/2022 10:42 AM EDT Oxygen Saturation 94% 12/16/2022 10:57 AM EDT Inhaled Oxygen Concentration - - Weight 68.9 kg (152 lb) 12/16/2022 10:42 AM EDT Height 162.6 cm (5' 4 ) 12/16/2022 10:42 AM EDT Body Mass Index 26.09 12/16/2022 10:42 AM EDT Plan of Treatment Health Maintenance Due Date Last Done Comments LIPID PANEL 1968 DEPRESSION SCREENING 1980 HEPATITIS C SCREENING 1986 HIV ONE-TIME SCREENING (18-65 YEARS) 1986 PAP SMEAR 1989 MAMMOGRAM 2008 COLOGUARD 2013 COLONOSCOPY 2013 COLORECTAL CANCER SCREENING 2013 FIT TEST 2013 FOBT 2013 SIGMOIDOSCOPY 2013 VIRTUAL COLONOSCOPY 2013 PNEUMOCOCCAL VACCINES (50+ years) (1 of 1 - PCV) 2018 ZOSTER VACCINES (1 of 2) 2018 INFLUENZA VACCINE (#1) 2025 2, 06/05/2021, 05/09/2020, Additional history exists COVID-19 VACCINE (2 - 2024- season) 2025 09/29/2020 SCREENING FOR DIABETES 12/16/2025 12/16/2022 Adult Td,Tdap Booster 03/26/2029 03/26/2019 RSV VACCINE (1 - 1-dose 75+ series) 2043 SMOKING STATUS SCREENING (Once After 26 Yrs) Completed 07/18/2021 HEPATITIS A VACCINES Aged Out No long er eligible based on patient's age to complete this topic HIB VACCINES Aged Out No longer eligi ble based on patient's age to complete this topic MENINGOCOCCAL VACCINES (ACWY) Aged Out No longer eligible based on patient's age to complete this topic MENINGOCOCCAL VACCINES (B) Aged Out N o longer eligible based on patient's age to complete this topic Medical Devices Not on file Insurance HMO HMO [facility] O O [facility] H[facility] Care Teams Academic Affairs Manager Relationship Specialty Start Date End Date Phani Rascon PA [address] [id number] PCP - General Physician Director [employer] 12/16/22 Additional Source Comments The information contained in this document represents components of the legal health record. It is not the complete legal health record.[facility]
--- OUTSIDE RECORDS SUMMARY | 2025-07-08 08:43 | XMS_ITS | Clinical Summary ---
Author Organization [facility] Prior to 12/13/24 Address [address] [place] [address] Care Team Providers Care Instructor Modeling Name Role Phone Kevin Laura MD Primary Care Provider Unavailab le Allergies No known active allergies Medications Medication Sig Dispensed Refills Start Date End Date Status clonazePAM (KlonoPIN) 1 MG tablet Take 1 mg by mouth daily. Takes at hs 0 09/16/2019 Active APPLE CIDER VINEGAR PO Take 1 tablet by mouth daily. 0 Active CYANOCOBALAMIN PO Take 1 tablet by mouth daily. 0 Active Turmeric 500 MG CAPS Take 2 tablets by mouth daily. 0 Active Vitamin E 180 MG (400 UNIT) CAPS Take 1 tablet by mouth daily. 0 Active vitamin C (ASCORBIC ACID) 500 MG tablet Take 500 mg by mouth daily. 0 Active Flaxseed, Linseed, (FLAX SEEDS PO) Take 1,200 mg by mouth daily. 0 Active CINNAMON PO Take 1,000 mg by mouth daily. 0 Active Probiotic Product (PROBIOTIC DAILY PO) Take 1 tablet by mouth daily. 0 Active Cholecalciferol (D3 ADULT PO) Take 5,000 Units by mouth daily. 0 Active FIBER DIET PO Take 1 tablet by mouth daily. 0 Active acetaminophen (TYLENOL EXTRA STRENGTH) 500 MG tablet Take 2 tablets (1,000 mg total) by mouth every 8 (eight) hours. 60 tablet 0 12/16/2021 Active methocarbamol (ROBAXIN) 750 MG tablet Take 1 tablet (750 mg total) by mouth every 6 (six) hours as needed. 40 tablet 0 12/16/2021 Active senna-docusate (PERICOLACE) 8.6-50 MG Take 1 tablet by mouth 2 (two) times a day. 60 tablet 0 12/16/2021 Active amoxicillin (AMOXIL) 500 MG tablet Take 4 tabs 1 hour prior to dental appointment 20 tablet 3 12/27/2021 Active Eliquis 5 MG TABS tablet 0 01/19/2022 Active oxyCODONE (ROXICODONE) 5 MG immediate release tablet Take 1 tab p.o. every 8-12 hours as needed for pain. 20 tablet 0 03/07/2022 Active oxyCODONE (ROXICODONE) 5 MG immediate release tablet Take 1 tab every 12 hours as needed for pain 20 tablet 0 03/14/2022 Active oxyCODONE (ROXICODONE) 5 MG immediate release tablet Take 1 tab every 8 hours as needed for pain 35 tablet 0 04/11/2022 Active oxyCODONE-acetamino phen (Percocet) 5-325 MG per tablet Take 1 tab every 24 hours as needed for pain 10 tablet 0 07/12/2022 Active Social History Tobacco Use Types Packs/Day Years Used Date Smoking Tobacco: Never Smokeless Tobacco: Never Alcohol Use Standard Drinks/Week Comments Never 0 (1 standard drink = 0.6 oz pur e alcohol) Sex and Gender Information Value Date Recorded Sex Assigned at Female 12/02/2021 4:28 PM EDT Gender Identity Female 12/02/2021 4:28 PM EDT Sexual Orientation Not on file Job Start Date Occupation Industry Not on file Not on file Not on file Last Filed Vital Signs Vital Sign Reading Time Taken Comments Blood Pressure 123/83 12/16/2021 7:48 AM EDT Pulse 77 12/16/2021 7:48 AM EDT Temperature 36.6 C (97.8 F) 12/16/2021 7:48 AM EDT Respiratory Rate 14 12/16/2021 7:48 AM EDT Oxygen Saturation 93% 12/16/2021 7:48 AM EDT Inhaled Oxygen Concentration - - Weight 70.8 kg (156 lb) 12/15/2021 5:41 AM EDT Height 162.6 cm (5' 4 ) 12/15/2021 5:41 AM EDT Body Mass Index 26.78 12/15/2021 5:41 AM EDT Plan of Treatment Health Maintenance Due Date Last Done Comments Hepatitis B Vaccines (1 of 3 - 3-dose series) 1968 Hepatitis C Screening 1968 Depression Screening 1980 BMI Counseling 1986 Preventative Health Evaluation 1986 Cervical Cancer Screening (Pap Smear) 1989 Colon Cancer Screening (Colonoscopy) 2013 Breast Cancer Screening (Mammogram) 2018 Shingrix-Zoster Vaccine (1 o f 2) 2018 COVID-19 Vaccine (2 - 2024-2 6 season) 2025 09/29/2020 Influenza Vaccine (#1) 2025 2, 05/09/2020, 03/26/2019 DTap / Tdap / Td (2 - Td or Tdap) 03/26/2029 03/26/2019 Pneumococcal Vaccine Aged Out No long er eligible based on patient's age to complete this topic RSV Ped < 20 months Aged Out No longe r eligible based on patient's age to complete this topic Medical Devices Implanted Type Area Carding Supervisor Device Identifier Shelf Expiration Date Model / Serial / Lot Cement Bone Surg Simplex Radiopq Stry-Howm [id number] [id number] - [id number] Implanted:Qty: 1 on 12/15/[place]21 [place]aton Suarez [place] [facility] [place]: Knee [employer] 02/13/2024 6191-1-010 / / [id number] Cement Bone Surg Simplex Radiopq Stry-Howm [id number] [id number] - [id number] Implanted:Qty: 1 on 12/15/2021 by Keaton Suarez [place] [facility] [place]: Knee [employer] 02/13/2024 6191-1-010 / / [id number] Knee Tib Insrt Ps-X3 Sz 2 9mm Stry-Howm [id number]-[id number] 856 - [id number] Implanted:Qty: 1 on 12/15/2021 by Keaton Suarez [place] [facility] [place]: Knee [employer] [id number] 04/27/2026 5532-G-209 / / [id number] Knee Tib Base Plt Trthln Sz 2 Stry-Howm [id number] [id number] - [id number] Implanted:Qty: 1 on 12/15/2021 by Keaton Suarez [place] [facility] [place] [facility] Left: Knee [employer] [id number] 06/17/2026 5520-B-200 / / [id number] Femoral Cmpnt Lt Sz 2 Stry-Howm [id number] [id number] - [id number] Implanted:Qty: 1 on 12/15/2021 by Keaton Suarez [place] [facility] [place] [facility] Left: Knee [employer] [id number] 06/20/2026 5515-F-201 / / [id number] Knee Pat Symmetric X3 29x8mm Stry-Howm [id number] - [id number] Implanted:Qty: 1 on 12/15/2021 by Keaton Suarez [place] [facility] [place] [facility] Left: Knee [employer] [id number] 10/08/2025 5550-G-298 / / [id number] Peg Fix Femoral Distal Stry-Howm [id number] - [id number] Implanted:Qty: 1 on 12/15/2021 by Keaton Suarez [place] [facility] [place] [facility] Left: Knee [employer] [id number] 04/12/2026 5575-X-000 / / [id number] Advance Directives For more information, please contact: [phone] Latest Code Status on File Code Status Date Activated Date Inactivated Comments Full Code 12/15/2021 9:41 AM 12/16/2021 6:24 PM This co de status was ascertained in the following way: discussion with patient . Code Status History Code Status Date Activated Date Inactivated Comments Full Code 12/15/2021 5:21 AM 12/15/2021 9:41 AM This co de status was ascertained in the following way: discussion with patient . Care Teams Instructor Modeling Relationship Specialty Start Date End Date Kevin Laura MD PCP - General Internal Medicine 10/07/21
--- NOTE | 2025-07-08 08:45 | MHC.OFFVIS ---
Intake Visit Reasons: OV - Left Knee Injury - Hx of Left TKA w/ Intake Note: Yun is a 55 year old female who presents today as a follow up for the Left Knee, Hx of Left TKA w/ . At today's visit she states that she had a slip and fall on 06/16/25, she noted that she slipped on ice and tried to catch herself causing her left knee to twist. Patient states that she was seen in urgent care and was given a knee brace and she continued to work. She states that the left knee feels very sore to the touch, swelling and sharp pain when going up/down the stairs. Most of her discomfort is along the medial aspect of her knee. 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 Renee presents with left knee discomfort most likely due to a strain of her medial collateral ligament. I discussed with the patient the fact that her discomfort should go back to her baseline over time. There is no indication for surgical intervention. She will continue with her activities as tolerated. I will see the patient back in 2 months time for evaluation of her right knee pain as per her request. Feel free to call me at any time should questions regarding her orthopedic management arise. I spent 22 minutes in reviewing the patient's records and imaging studies, seeing the patient and documenting in the medical record. Orders: Orders XR knee LT 3V Today M25.562 - Pain in left knee Coding Level of Care Code Est Pt Level 3 (21472) Add On Problem Visit Only Diagnoses Left knee pain M25.562
== END 2025-07-08 09:05 | disposition home or self-care (01) ==
PROVIDERS: PCP Internal Medicine; Visit Provider Orthopaedic Surgery
DX: M25.562 Pain in left knee (principal)
CPT/HCPCS: 99213; G2211